=== PATIENT | female | born 1960 | race African-American/Black ===

== ENCOUNTER 2021-03-20 10:15 | Inpatient (IN) | payer MEDICAID, OTHER ==
[~2021-03-20] VITALS: Ht 162.6 cm; Wt 132.4 kg
[~2021-03-20 10:15] MED LIST: AMLO10TA4 PO; CALC-696 PO; DOCU-100 PO; FERR325T23 PO; FURO-151 PO; GABA-532 PO; METO100T3 PO; N325 PO; OXYC-23 PO
[2021-03-20] MEDS ORDERED: ONDANSETRON HCL 4MG/2ML INJ IV STA (11:06)
[2021-03-20] MEDS ORDERED: MORPHINE SULFATE 4 MG/ML CPJ (NOT FOR IM USE) IV STA (11:06)
[2021-03-20] MEDS ORDERED: SODIUM CHLORIDE 0.9% 1,000 ML IV ONE (11:15)
[2021-03-20] MEDS ORDERED: DIPHENHYDRAMINE 50MG/ML VIAL IV ONE (11:15)
[2021-03-20 12:48] LABS: BASOPHILS % 0.8 % (0.0-2.0); EOSINOPHILS % 2.2 % (0.0-5.0); HEMATOCRIT. 37.2 % (36.0-48.0); LYMPHOCYTES % 21.1 % (20.0-50.0); MEAN CORPUSCULAR HEMOGLOBIN 20.3 pg (28.0-32.0); MEAN CORPUSCULAR VOLUME 68.3 fL (81.0-99.0); MEAN PLATELET VOLUME 9.1 fl (7.4-10.4); NEUTROPHILS % 68.9 % (40.0-76.0); PLATELET 215 x1000/uL (130-400); RED BLOOD CELL COUNT 5.44 mill/uL (4.2-5.4); RED CELL DISTRIBUTION WIDTH 21.3 % (11.6-14.6)
[2021-03-20 12:50] LABS: CHLORIDE 109 mEq/L (98-107)
[2021-03-20 12:53] LABS: INR 0.9; PROTHROMBIN TIME 10.2 sec (9.6-11.0)
[2021-03-20 13:21] LABS: PLATELET ESTIMATE NORMAL
[2021-03-20] MEDS ORDERED: IOHEXOL-350 100 ML BOTTLE ONE (15:06)
[2021-03-20] MEDS: HYDROCODONE/ACETAMINOPHEN 5/325MG TABLET PO PRN (18:03)
[2021-03-20 23:30] VITALS: BP 126/84
[2021-03-20] MEDS ORDERED: ONDANSETRON HCL 4MG/2ML INJ IV PRN (23:30)
[2021-03-20] MEDS ORDERED: NALOXONE HCL 0.4 MG/ML 1ML VIAL IV PRN (23:30)
[2021-03-20] MEDS: MORPHINE SULFATE 2 MG/ML CPJ (NOT FOR IM USE) IV PRN (23:39)
[2021-03-21] MEDS ORDERED: ASPI-1497 PO (02:14)
[2021-03-21] MEDS ORDERED: NITROGLYCERIN 0.4MG TABLET SL SL PRN (02:15)
[2021-03-21] MEDS ORDERED: ACETAMINOPHEN 325MG TABLET PO PRN (02:15)
[2021-03-21] MEDS ORDERED: ZOLPIDEM TARTRATE 5MG TABLET PO PRN (02:30)
[2021-03-21] MEDS: HYDROCODONE/ACETAMINOPHEN 5/325MG TABLET PO PRN ×3 (03:29→22:58)
[2021-03-21 04:00] VITALS: BP 120/60
[2021-03-21] MEDS: MORPHINE SULFATE 2 MG/ML CPJ (NOT FOR IM USE) IV PRN ×2 (05:43→09:44)
[2021-03-21 07:54] VITALS: BP 159/88
[2021-03-21 08:07] LABS: BASOPHILS % 0.6 % (0.0-2.0); EOSINOPHILS % 2.2 % (0.0-5.0); HEMATOCRIT. 33.6 % (36.0-48.0); HEMOGLOBIN. 10.2 g/dL (12.0-16.0); LYMPHOCYTES % 26.5 % (20.0-50.0); MEAN CORPUSCULAR HEMOGLOBIN 20.6 pg (28.0-32.0); MEAN CORPUSCULAR VOLUME 67.9 fL (81.0-99.0); MEAN PLATELET VOLUME 9.1 fl (7.4-10.4); MONOCYTES % 7.1 % (2.0-8.0); NEUTROPHILS % 63.6 % (40.0-76.0); PLATELET 190 x1000/uL (130-400); RED BLOOD CELL COUNT 4.96 mill/uL (4.2-5.4); RED CELL DISTRIBUTION WIDTH 21.5 % (11.6-14.6)
[2021-03-21 08:38] LABS: CHLORIDE 111 mEq/L (98-107)
[2021-03-21 08:50] LABS: LDL CHOLESTEROL 65 mg/dL (5-100)
[2021-03-21 08:51] LABS: CREATINE KINASE 48 IU/L (26-192)
[2021-03-21 08:52] LABS: HDL CHOLESTEROL 46 mg/dL (40-59)
[2021-03-21 08:53] LABS: CREATINE KINASE MB FRACTION < 1.0 ng/mL (0.5-3.6)
[2021-03-21] MEDS ORDERED: ENOXAPARIN 40MG/0.4ML SYR SUBCUT SCH (09:00)
[2021-03-21] MEDS ORDERED: ENOXAPARIN 30MG/0.3ML SYR SUBCUT SCH (09:00)
[2021-03-21] MEDS ORDERED: METOPROLOL SUCCINATE 50MG ER TABLET PO SCH (09:00)
[2021-03-21] MEDS: LISINOPRIL 20MG TABLET PO SCH (09:35)
[2021-03-21 11:49] VITALS: BP 167/78
[2021-03-21] MEDS ORDERED: AMLODIPINE 10MG TABLET PO SCH (12:15)
[2021-03-21] MEDS ORDERED: AMLODIPINE 2.5MG TABLET PO NR (12:30)
[2021-03-21] MEDS ORDERED: HYDROMORPHONE HCL/PF 2MG/ML CPJ IM PRN (12:45)
[2021-03-21] MEDS: HYDROCODONE/ACETAMINOPHEN 10/325MG TABLET PO PRN ×2 (14:36→18:39)
[2021-03-21 16:00] VITALS: BP 143/82
[2021-03-21 20:00] VITALS: BP 142/86
[2021-03-21] MEDS: METOPROLOL TARTRATE 50MG TABLET PO SCH (21:33)
[2021-03-21] MEDS: ENOXAPARIN 40MG/0.4ML SYR SUBCUT SCH (21:34)
[2021-03-21] MEDS: AMLODIPINE 2.5MG TABLET PO SCH (21:42)
[2021-03-21 22:07] VITALS: BP 142/86
[2021-03-22] VITALS: BP 177/92
[2021-03-22] MEDS: HYDROCODONE/ACETAMINOPHEN 10/325MG TABLET PO PRN ×3 (02:43→15:44)
[2021-03-22 04:00] VITALS: BP 103/74
[2021-03-22] MEDS: HYDROCODONE/ACETAMINOPHEN 5/325MG TABLET PO PRN ×3 (06:40→18:53)
[2021-03-22 08:00] VITALS: BP 160/84
[2021-03-22] MEDS: METOPROLOL TARTRATE 50MG TABLET PO SCH (10:06)
[2021-03-22] MEDS: ENOXAPARIN 40MG/0.4ML SYR SUBCUT SCH (10:06)
[2021-03-22] MEDS: AMLODIPINE 2.5MG TABLET PO SCH (10:06)
[2021-03-22] MEDS: LISINOPRIL 20MG TABLET PO SCH (10:06)
[2021-03-22 12:00] VITALS: BP 159/81
[2021-03-22 16:00] VITALS: BP 139/58
[2021-03-22 16:06] VITALS: BP 140/69
== END 2021-03-22 20:15 | disposition home or self-care (01) | DRG 203 ==
LOC: ER 10:26 → MICUSO 15:29 → 5WST 21:32
PROVIDERS: ADMIT Internal Medicine; ATTEND Internal Medicine
DX: M94.0 Chondrocostal junction syndrome [Tietze] (principal); Z68.43 Body mass index [BMI] 50.0-59.9, adult; E66.01 Morbid (severe) obesity due to excess calories; F17.210 Nicotine dependence, cigarettes, uncomplicated; M19.90 Unspecified osteoarthritis, unspecified site; Z20.822 Contact with and (suspected) exposure to COVID-19; J44.9 Chronic obstructive pulmonary disease, unspecified; I10 Essential (primary) hypertension; Z88.5 Allergy status to narcotic agent; Z79.899 Other long term (current) drug therapy; Z88.2 Allergy status to sulfonamides; Z83.3 Family history of diabetes mellitus; Z82.49 Family history of ischemic heart disease and other diseases of the circulatory system; Z71.3 Dietary counseling and surveillance
CPT/HCPCS: 36415; 71045; 71275; 73562; 74174; 80048; 80053; 80061; 82550; 82553; 83880; 84484; 85025; 86850; 86900; 87426; 93005; 93306; 99285; J1200; J1650; J2270; J2405; J7030; Q9967

== ENCOUNTER 2021-09-11 23:10 | Inpatient (IN) | payer MEDICAID ==
[~2021-09-11] VITALS: Ht 165.1 cm; Wt 127.2 kg
[~2021-09-11 23:10] MED LIST changes: +ASPI-1497 PO
[2021-09-12] MEDS ORDERED: ONDANSETRON HCL 4MG/2ML INJ IV STA ×2 (00:10→03:15)
[2021-09-12] MEDS ORDERED: SODIUM CHLORIDE 0.9% 1,000 ML IV ONE (00:15)
[2021-09-12] MEDS ORDERED: NITROGLYCERIN 0.4MG TABLET SL SL PRN (00:15)
[2021-09-12 00:46] LABS: BASOPHILS % 0.8 % (0.0-2.0); EOSINOPHILS % 1.8 % (0.0-5.0); HEMATOCRIT. 45.2 % (36.0-48.0); HEMOGLOBIN. 13.8 g/dL (12.0-16.0); LYMPHOCYTES % 30.3 % (20.0-50.0); MEAN CORPUSCULAR HEMOGLOBIN 23.6 pg (28.0-32.0); MEAN CORPUSCULAR VOLUME 77.1 fL (81.0-99.0); MONOCYTES % 6.4 % (2.0-8.0); NEUTROPHILS % 60.7 % (40.0-76.0); RED BLOOD CELL COUNT 5.86 mill/uL (4.2-5.4); RED CELL DISTRIBUTION WIDTH 18.9 % (11.6-14.6)
[2021-09-12 01:39] LABS: CHLORIDE 105 mEq/L (98-107)
[2021-09-12 01:49] LABS: MEAN PLATELET VOLUME 8.9 fl (7.4-10.4); PLATELET 149 x1000/uL (130-400)
[2021-09-12] MEDS ORDERED: DIPHENHYDRAMINE 50MG/ML VIAL IV ONE (03:15)
[2021-09-12] MEDS ORDERED: MORPHINE SULFATE 4 MG/ML CPJ (NOT FOR IM USE) IV STA (03:15)
[2021-09-12] MEDS ORDERED: IOHEXOL-350 100 ML BOTTLE ONE (03:21)
[2021-09-12] MEDS ORDERED: ASPIRIN 81MG TABLET PO ONE (04:00)
[2021-09-12 12:36] VITALS: BP_SYST 136; BP_SYST 138; BP_DIAS 83
[2021-09-12] MEDS ORDERED: ONDANSETRON HCL 4MG/2ML INJ IV PRN (13:45)
[2021-09-12] MEDS ORDERED: NALOXONE HCL 0.4MG/ML VIAL IV PRN (14:00)
[2021-09-12] MEDS: HYDROCODONE/ACETAMINOPHEN 5/325MG TABLET PO PRN ×3 (14:13→22:44)
[2021-09-12] MEDS ORDERED: HYDR-4009 PO (14:59)
[2021-09-12] MEDS ORDERED: GABA800T97 PO (15:00)
[2021-09-12 16:00] VITALS: BP 141/79
[2021-09-12] MEDS ORDERED: DOCUSATE SODIUM 100MG CAPSULE PO PRN (19:45)
[2021-09-12 20:00] VITALS: BP 172/68
[2021-09-13] VITALS: BP 134/67
[2021-09-13] MEDS: HYDROCODONE/ACETAMINOPHEN 5/325MG TABLET PO PRN ×3 (02:47→22:06)
[2021-09-13 04:00] VITALS: BP 150/77
[2021-09-13 08:00] VITALS: BP 157/99
[2021-09-13] MEDS: FERROUS SULFATE 325MG TABLET PO SCH (09:07)
[2021-09-13] MEDS: CALCIUM CARBONATE 500MG TABLET CHEW PO SCH (09:08)
[2021-09-13] MEDS: ASPIRIN 81MG TABLET PO SCH (09:08)
[2021-09-13] MEDS: AMLODIPINE 10MG TABLET PO SCH (09:11)
[2021-09-13] MEDS: GABAPENTIN 400MG CAPSULE PO SCH (09:11)
[2021-09-13] MEDS: METOPROLOL TARTRATE 100MG TABLET PO SCH ×2 (09:12→17:35)
[2021-09-13] MEDS: FUROSEMIDE 40MG TABLET PO SCH (09:12)
[2021-09-13] MEDS: HYDROMORPHONE HCL/PF 2MG/ML CPJ IV PRN ×2 (14:12→20:25)
[2021-09-13] MEDS ORDERED: REGADENOSON 0.4 MG/5 ML IV SCH (14:15)
[2021-09-13 16:00] VITALS: BP 153/74
[2021-09-13 20:00] VITALS: BP_SYST 181; BP_DIAS 9; BP_DIAS 96
[2021-09-13 21:00] VITALS: BP 158/81
[2021-09-14] VITALS: BP 148/69
[2021-09-14 04:00] VITALS: BP 189/94
[2021-09-14] MEDS: HYDROMORPHONE HCL/PF 2MG/ML CPJ IV PRN ×4 (04:19→23:55)
[2021-09-14 07:19] LABS: BASOPHILS % 0.5 % (0.0-2.0); EOSINOPHILS % 1.7 % (0.0-5.0); HEMATOCRIT. 40.8 % (36.0-48.0); HEMOGLOBIN. 12.9 g/dL (12.0-16.0); LYMPHOCYTES % 11.1 % (20.0-50.0); MEAN CORPUSCULAR HEMOGLOBIN 23.7 pg (28.0-32.0); MEAN PLATELET VOLUME 9.1 fl (7.4-10.4); MONOCYTES % 8.7 % (2.0-8.0); PLATELET 136 x1000/uL (130-400); RED BLOOD CELL COUNT 5.44 mill/uL (4.2-5.4); RED CELL DISTRIBUTION WIDTH 17.9 % (11.6-14.6)
[2021-09-14 07:53] LABS: CHLORIDE 106 mEq/L (98-107)
[2021-09-14 08:01] LABS: HDL CHOLESTEROL 44 mg/dL (40-59); LDL CHOLESTEROL 116 mg/dL (5-100)
[2021-09-14] MEDS: GABAPENTIN 400MG CAPSULE PO SCH (09:38)
[2021-09-14] MEDS: CALCIUM CARBONATE 500MG TABLET CHEW PO SCH (09:38)
[2021-09-14] MEDS: ASPIRIN 81MG TABLET PO SCH (09:38)
[2021-09-14] MEDS: FUROSEMIDE 40MG TABLET PO SCH ×2 (09:39→16:51)
[2021-09-14] MEDS: FERROUS SULFATE 325MG TABLET PO SCH (09:39)
[2021-09-14] MEDS: AMLODIPINE 10MG TABLET PO SCH (09:39)
[2021-09-14] MEDS: METOPROLOL TARTRATE 100MG TABLET PO SCH ×2 (09:39→16:52)
[2021-09-14] MEDS ORDERED: DOBUTAMINE 250MG PREMIX 250 ML IV SCH ×2 (10:00→12:15)
[2021-09-14] MEDS: NITROGLYCERIN OINT 1GM/INCH UDPKT TD SCH ×3 (14:03→20:40)
[2021-09-14 16:00] VITALS: BP 145/81
[2021-09-14 20:00] VITALS: BP 126/64
[2021-09-14] MEDS: ATORVASTATIN CALCIUM 10MG TABLET PO SCH (20:40)
[2021-09-15] VITALS: BP 159/81
[2021-09-15 04:00] VITALS: BP 143/76
[2021-09-15] MEDS: NITROGLYCERIN OINT 1GM/INCH UDPKT TD SCH ×3 (06:18→21:54)
[2021-09-15] MEDS: HYDROMORPHONE HCL/PF 2MG/ML CPJ IV PRN ×4 (06:18→23:55)
[2021-09-15] MEDS: FUROSEMIDE 40MG TABLET PO SCH (06:18)
[2021-09-15 07:28] LABS: BASOPHILS % 0.7 % (0.0-2.0); EOSINOPHILS % 0.4 % (0.0-5.0); HEMATOCRIT. 41.1 % (36.0-48.0); HEMOGLOBIN. 12.9 g/dL (12.0-16.0); LYMPHOCYTES % 21.5 % (20.0-50.0); MEAN CORPUSCULAR HEMOGLOBIN 23.4 pg (28.0-32.0); MEAN CORPUSCULAR VOLUME 74.5 fL (81.0-99.0); MEAN PLATELET VOLUME 9.3 fl (7.4-10.4); MONOCYTES % 14.4 % (2.0-8.0); PLATELET 156 x1000/uL (130-400); RED BLOOD CELL COUNT 5.52 mill/uL (4.2-5.4); RED CELL DISTRIBUTION WIDTH 17.8 % (11.6-14.6)
[2021-09-15 07:46] LABS: CHLORIDE 101 mEq/L (98-107)
[2021-09-15] MEDS: METOPROLOL TARTRATE 100MG TABLET PO SCH ×2 (09:00→17:09)
[2021-09-15] MEDS: CALCIUM CARBONATE 500MG TABLET CHEW PO SCH (10:36)
[2021-09-15] MEDS: ASPIRIN 81MG TABLET PO SCH (10:36)
[2021-09-15] MEDS: AMLODIPINE 10MG TABLET PO SCH (10:39)
[2021-09-15] MEDS: FERROUS SULFATE 325MG TABLET PO SCH (10:40)
[2021-09-15] MEDS: GABAPENTIN 400MG CAPSULE PO SCH (10:40)
[2021-09-15] MEDS ORDERED: POTASSIUM CHLORIDE 20MEQ TABLET SR PO NR (11:00)
[2021-09-15 12:00] VITALS: BP 138/65
[2021-09-15 16:00] VITALS: BP 140/77
[2021-09-15 20:00] VITALS: BP 129/75
[2021-09-15] MEDS: ATORVASTATIN CALCIUM 10MG TABLET PO SCH (21:54)
[2021-09-16] VITALS: BP 140/81
[2021-09-16 04:00] VITALS: BP 108/52
[2021-09-16] MEDS: NITROGLYCERIN OINT 1GM/INCH UDPKT TD SCH ×2 (06:23→14:00)
[2021-09-16] MEDS: HYDROMORPHONE HCL/PF 2MG/ML CPJ IV PRN (06:24)
[2021-09-16 07:09] LABS: BASOPHILS % 0.5 % (0.0-2.0); EOSINOPHILS % 0.5 % (0.0-5.0); HEMATOCRIT. 41.6 % (36.0-48.0); HEMOGLOBIN. 13.2 g/dL (12.0-16.0); LYMPHOCYTES % 22.3 % (20.0-50.0); MEAN CORPUSCULAR HEMOGLOBIN 23.7 pg (28.0-32.0); MEAN CORPUSCULAR VOLUME 74.8 fL (81.0-99.0); MEAN PLATELET VOLUME 9.6 fl (7.4-10.4); MONOCYTES % 14.9 % (2.0-8.0); NEUTROPHILS % 61.8 % (40.0-76.0); PLATELET 160 x1000/uL (130-400); RED BLOOD CELL COUNT 5.55 mill/uL (4.2-5.4); RED CELL DISTRIBUTION WIDTH 17.8 % (11.6-14.6)
[2021-09-16 07:55] LABS: CHLORIDE 99 mEq/L (98-107)
[2021-09-16 08:00] VITALS: BP 128/67
[2021-09-16] MEDS ORDERED: POTASSIUM CHLORIDE 20MEQ TABLET SR PO SCH (09:00)
[2021-09-16] MEDS: METOPROLOL TARTRATE 100MG TABLET PO SCH (09:00)
[2021-09-16] MEDS ORDERED: FUROSEMIDE 40MG TABLET PO SCH (09:00)
[2021-09-16] MEDS: ASPIRIN 81MG TABLET PO SCH (09:38)
[2021-09-16] MEDS: FERROUS SULFATE 325MG TABLET PO SCH (09:38)
[2021-09-16] MEDS: CALCIUM CARBONATE 500MG TABLET CHEW PO SCH (09:38)
[2021-09-16] MEDS: AMLODIPINE 10MG TABLET PO SCH (09:38)
[2021-09-16] MEDS: GABAPENTIN 400MG CAPSULE PO SCH (09:39)
[2021-09-16 12:00] VITALS: BP 126/68
[2021-09-16 12:53] VITALS: BP 126/68
== END 2021-09-16 14:20 | disposition home or self-care (01) | DRG 203 ==
LOC: ER 23:10 → MICUSO 09-12 03:55 → 7WST 09-12 12:10
PROVIDERS: ADMIT Internal Medicine; ATTEND Internal Medicine
DX: M94.0 Chondrocostal junction syndrome [Tietze] (principal); I27.21 Secondary pulmonary arterial hypertension; E66.01 Morbid (severe) obesity due to excess calories; I10 Essential (primary) hypertension; J44.9 Chronic obstructive pulmonary disease, unspecified; E87.6 Hypokalemia; M19.90 Unspecified osteoarthritis, unspecified site; G47.33 Obstructive sleep apnea (adult) (pediatric); I07.1 Rheumatic tricuspid insufficiency; Z20.822 Contact with and (suspected) exposure to COVID-19; E78.5 Hyperlipidemia, unspecified; F17.210 Nicotine dependence, cigarettes, uncomplicated; Z79.82 Long term (current) use of aspirin; Z79.899 Other long term (current) drug therapy; Z86.16 Personal history of COVID-19; Z68.42 Body mass index [BMI] 45.0-49.9, adult; Z86.79 Personal history of other diseases of the circulatory system; Z88.8 Allergy status to other drugs, medicaments and biological substances; Z88.2 Allergy status to sulfonamides; Z88.5 Allergy status to narcotic agent
CPT/HCPCS: 36415; 71045; 71275; 74174; 80048; 80053; 80061; 83735; 83880; 84484; 85025; 87426; 93005; 93306; 93350; 99285; J1170; J1200; J1250; J2270; J2405; J7030; Q9967